=== PATIENT | female | born 1990 | race Caucasian/White ===

== ENCOUNTER 2016-10-05 18:04 | Emergency (ER) | payer OTHER ==
[~2016-10-05] VITALS: Ht 165.1 cm; Wt 61.4 kg
[2016-10-05 18:12] VITALS: BP 123/78; PULSE 82; RESP 16; O2SAT 99
--- NOTE | 2016-10-05 18:51 | ED.REPORT ---
HPI-General Illness Date of Service Oct 05, 2016 ED Provider: Dr. Vimal March The patient is a 26 year old female who presents to the ED due to a cough for the past 3 days. Associated symptoms include sore throat, kidney pain, and abdominal pain. She states that her abdominal symptoms feel similar to previous urinary tract infections. Her 3 year old son also has a cough and sore throat. Nursing Notes Stated Complaint: ABDOMINAL PAIN/PAINFUL URINATION/COUGH Chief Complaint: Female Abdominal Pain Nursing Notes Reviewed: Yes Allergies: Coded Allergies: Penicillins (Verified Allergy, Unknown, 10/05/16) General Time Seen by MD: 18:51 Chief Complaint Cough Hx Obtained From: Patient Arrived By: Walk-in Sudden in Onset?: Yes Onset Occurred: 3 days ago Symptom Duration: Since onset Location: : Abdomen Quality: Painful Severity: Current: Mild Associated with: Reports: Abdominal pain, Cough Recent Healthcare: No recent doctor visit, No recent hospitalization Similar Sx Previous: No Past Medical History Past Medical History Notes: Currently transitioning primary care Past Medical History Reports: Asthma Past Surgical History Reports: Tonsillectomy Family History Reviewed, not relevant Smoking History Former Smoker Social History Pt is taking Methadone Alcohol Use: Denies alcohol use Drug Use: Denies drug use Other Social History: Lives with children Ambulatory Status Independent Review of Systems Full Review of Systems Constitutional: Denies: Fever Ears / Nose / Throat: Reports: Sore throat, Throat pain Respiratory: Reports: Non-productive cough GI: Reports: Abdominal pain, Denies: Diarrhea, Nausea, Vomiting Female: Reports: Flank pain Complete sys rev & neg: except as marked. Physical Exam Vital Signs Vital Signs Date Time Temp Pulse Resp B/P Pulse Ox O2 Delivery O2 Flow Rate FiO2 10/05/16 20:30 37.0 62 20 101/63 98 Room Air 10/05/16 18:12 36.6 82 16 123/78 99 Room Air Initial VS: Reviewed General/Constitutional: Awake, Alert, Cooperative, Not toxic appearing Head / Eyes: Atraumatic, Normocephalic, PERRL, EOMI ENT: Atraumatic, Mucous membranes moist Respiratory / Chest: Atraumatic, Breath sounds NL, Breath sounds = bilat Cardiovascular: Heart rate NL, Regular rhythm, Heart sounds NL Back: Atraumatic, Inspection NL Upper Extremities Upper Extremity / MS: Atraumatic, Inspection NL, Full range of motion Lower Extremity / Pelvis / MS: Atraumatic, Inspection NL, Full range of motion Skin: Atraumatic, No rash Neurologic: Oriented X3, Speech NL, No motor deficits Interpretation & Diagnostics Lab Results Interpretation Test 10/05/16 18:50 Urine Color Yellow (YELLOW) Urine Appearance Hazy (CLEAR,HAZY) Urine pH 7.0 (5.0-8.0) Urine Specific Flushing 1.010 (1.003-1.035) Urine Protein 30mg/dL (NEG,TRACE) Urine Glucose (UA) Negativemg/dL (NEGATIVE) Urine Ketones Negativemg/dL (NEGATIVE) Urine Occult Blood Moderate (NEGATIVE) Urine Nitrite Negative (NEGATIVE) Urine Bilirubin Negative (NEGATIVE) Urine Urobilinogen Normalmg/dL (NORMAL) Urine Leukocyte Esterase Trace (NEGATIVE) Urine RBC 3-10/hpf (0-2) Urine WBC 11-50/hpf (0-5) Urine Epithelial Cells Moderate/hpf (NONE-MOD) Urine Crystals None seen (NONE SEEN) Urine Bacteria Many/hpf (NONE-FEW) Urine Hyaline Casts None/lpf (NONE) Urine Granular Casts None seen (NONE SEEN) Urine Waxy Casts None seen (NONE SEEN) Urine Red Blood Cell Casts None seen (NONE SEEN) Urine White Blood Cell Casts None seen (NONE SEEN) Urine Mucus None seen (None Seen) Urine Trichomonas None seen (NONE SEEN) Urine Yeast None (NONE SEEN) Urinalysis Comment None Urine Culture Reflexed Indicated Re-Eval/Medical Decision Med Decision/Clinical Course Very benign exam. No tenderness in her abdomen. Imaging felt to be not indicated. She has dysuria and signs of a urinary tract infection. Course of Keflex prescribed. Recommend Tylenol or Motrin for pain. Time of Eval: 19:47 Re-Evaluation/Progress Note: Plan for urine sample. Counseled Regarding: Diagnosis, Lab results, Need for follow-up, When/why to return to ED Discharge & Departure Primary Impression: Urinary tract infection Urinary tract infection type: site unspecified Hematuria presence: without hematuria Qualified Code: N39.0 - Urinary tract infection, site not specified Disposition: Home Discharge Condition All VS Reviewed: Yes Condition: Stable Patient Instructions: Urinary Tract Infection in Women (ED) Additional Instructions: Thank you for entrusting us with your care today. For your urinary tract infection take the antibiotic Kelex three times daily for five days. You should be on the antibiotics for 48 hrs before you return to work. I've attached a work note for you. Use Tylenol and Motrin as needed for pain. Follow up with your primary care physician. Return to the Emergency Department if you experience any new or worsening symptoms. I hope you feel better soon! Referrals: [facility] (PCP) [facility] Att[facility] Portion of this note were transcribed by Kayy Hampton. I, Dr. March, personally performed the history, physical exam, and medical decision-making: I reviewed and confirmed the accuracy for the information in the transcribed note. Signed by: pratik Stanford, 10/05/161999 copies to: [facility] Vimal March DO Oct 05, 2016 18:51 Kayy Hampton Oct 05, 2016 19:41
[2016-10-05 19:51] LABS: APPEARANCE,URINE HAZY (CLEAR,HAZY); COLOR,URINE YELLOW (YELLOW); OCCULT BLOOD,URINE MODERATE (NEGATIVE); UROBILINOGEN,URINE NORMAL (NORMAL)
[2016-10-05 20:30] VITALS: BP 101/63; PULSE 62; RESP 20; O2SAT 98
== END 2016-10-05 20:30 | disposition home or self-care (01) ==
LOC: SED 18:04
DX: N39.0 Urinary tract infection, site not specified (principal); B96.4 Proteus (mirabilis) (morganii) as the cause of diseases classified elsewhere; R05 Cough; J45.909 Unspecified asthma, uncomplicated; F17.200 Nicotine dependence, unspecified, uncomplicated; Z87.442 Personal history of urinary calculi; Z87.440 Personal history of urinary (tract) infections; Z88.0 Allergy status to penicillin